=== PATIENT | female | born 1990 | race African-American/Black ===

== ENCOUNTER 2022-11-06 09:11 | Emergency (ER) | payer OTHER ==
[~2022-11-06] VITALS: Ht 167.6 cm; Wt 65.0 kg
[2022-11-06 09:12] VITALS: BP 115/69; TEMP 98; O2SAT 100
[2022-11-06] MEDS ORDERED: AMOX500C PO (14:47)
== END 2022-11-06 15:15 | disposition home or self-care (01) ==
LOC: M ED 09:11
DX: R05.9 Cough, unspecified (principal); B97.89 Other viral agents as the cause of diseases classified elsewhere; Z20.89 Contact with and (suspected) exposure to other communicable diseases